=== PATIENT | male | born 1995 | race Caucasian/White ===

== ENCOUNTER 2019-09-20 16:12 | Emergency (ER) | payer SELFPAY ==
[~2019-09-20] VITALS: Ht 162.6 cm; Wt 65.0 kg
[2019-09-20] MEDS ORDERED: IBUPROFEN 600MG TABLET PO STA (21:42)
[2019-09-20 23:20] VITALS: BP 114/70
== END 2019-09-20 23:31 | disposition home or self-care (01) ==
LOC: ER 16:12
DX: R07.9 Chest pain, unspecified (principal); M25.512 Pain in left shoulder; F12.10 Cannabis abuse, uncomplicated; Z88.0 Allergy status to penicillin
CPT/HCPCS: 71045; 73030; 93005; 99283